=== PATIENT | male | born 1985 | race African-American/Black ===

== ENCOUNTER 2024-02-25 20:44 | Inpatient (IN) | payer MEDICARE, MEDICAID ==
[2024-02-25] MEDS ORDERED: Acetaminophen 325 MG TAB PO PRN (23:02)
[2024-02-25] MEDS ORDERED: Ondansetron PF 4 MG/2 ML Vial IVP PRN (23:02)
[2024-02-25] MEDS ORDERED: Lorazepam 2 MG/ML VIAL SLOW IVP PRN (23:29)
[2024-02-26] MEDS: Lactated Ringer's 1,000 ML IV SCH ×2 (01:33→09:43)
[2024-02-26 01:35] VITALS: BMI 25.7
[2024-02-26 06:06] LABS: #Basophils 0.04 10x3/uL (0.0-0.2); #Eosinphils Less than 0.03 10x3/uL (0.0-0.7); %Basophils 0.5 % (0.0-1.0); %Eosinophils 0.3 % (0.0-10.0); %Lymphocytes 21.2 % (21.0-51.0); %Monocytes 10.4 % (0.0-10.0); %Neutrophils 67.3 % (42.0-75.0); Hematocrit 34.9 % (42.0-52.0); Hemoglobin 11.3 g/dL (14.0-18.0); Mean Corpuscular HGB CONC 32.4 g/dL (32.0-36.0); Mean Corpuscular Hemoglobin 28.8 pg (27.0-31.0); Mean Corpuscular Volume 88.8 fL (78.0-98.0); Platelet Count 189 10x3/uL (130-400); RBC Distribution Width 14.7 % (11.5-14.5); Red Blood Cell (RBC) Count 3.93 mill/uL (4.70-6.10)
[2024-02-26 06:51] LABS: Amphetamine Not Detected (NotDetected); Barbiturates Screen Not Detected (NotDetected); Benzodiazepine Screen Detected (NotDetected); Cocaine Metabolite Screen Not Detected (NotDetected); Methadone Not Detected (NotDetected); Methamphetamine Not Detected (NotDetected); Opiate Screen Not Detected (NotDetected); Oxycodone Screen Not Detected (NotDetected); Phencyclidine (PCP) Not Detected (NotDetected); THC/Cannabinoid Screen Detected (NotDetected); Tricyclic Screen Not Detected (NotDetected)
[2024-02-26 06:58] LABS: Bilirubin Negative (Negative); Blood, Urine 2+ (Negative); Clarity Extra Turbid (Clear); Glucose, Urine (Dipstick) Normal (Negative); Ketone, Urine 60 mg/dL (Negative); Leukocyte 500 Leu/uL (Negative); Nitrite Negative (Negative); Protein, Urine (Dipstick) 50 mg/dL (Neg-Trace); RBC/HPF 21-50 HPF (0-3); Specific Gravity, Urine 1.017 (1.002-1.036); Squamous Epithelial 0-3 HPF (0-3); Urobilinogen Normal mg/dL (Less than 2); WBC/HPF Greater than 50 HPF (0-3)
[2024-02-26 06:59] LABS: Bacteria/HPF 1+ HPF (None Seen)
[2024-02-26 07:00] LABS: CK (CPK) 9041 U/L (30-200)
[2024-02-26 07:09] LABS: ALT (SGPT) 56 U/L (8-55); AST (SGOT) 136 U/L (5-34); Albumin 3.3 g/dL (3.5-5.0); Alkaline Phosphatase 68 U/L (40-110); Anion Gap 14 mmol/L (10-20); BUN (Urea Nitrogen) 9 mg/dL (8.9-20.6); Bilirubin, Total 0.5 mg/dL (0.2-1.2); Calc. Creatinine Clearance 121 mL/min (70-130); Calcium 8.4 mg/dL (7.8-10.44); Carbon Dioxide 22 mmol/L (22-29); Chloride 106 mmol/L (98-107); Estimated GFR 101; Globulin 2.9 g/dL (2.4-3.5); Glucose 85 mg/dL (70-105); Magnesium 2.2 mg/dL (1.6-2.6); Potassium 3.5 mmol/L (3.5-5.1); Protein, Total 6.2 g/dL (6.0-8.3); Sodium 138 mmol/L (136-145)
[2024-02-26] MEDS: Ziprasidone 20 MG VIAL IM SCH (08:05)
[2024-02-26] MEDS: Sterile Water 10 ML VIAL FS SCH (08:05)
[2024-02-26] MEDS: Cefdinir 300 MG CAP PO SCH (09:43)
[2024-02-26] MEDS: OLANZapine 5 MG TAB PO SCH (09:44)
[2024-02-26] MEDS: levETIRAcetam 500 MG (5 mL) VIAL SLOW IVP SCH (09:44)
[2024-02-26 16:04] VITALS: BP 146/99; TEMP 98.2
[2024-02-27] MEDS: FLU (Fluarix Triv) TS24-25(6MOS UP)/PF 45 MCG/0.5 ML Syringe IM ONE (07:50)
[2024-02-27] MEDS: OLANZapine 5 MG TAB PO SCH (09:58)
[2024-02-27] MEDS: levETIRAcetam 500 MG TAB PO SCH (09:58)
== END 2024-02-27 10:06 | disposition left against medical advice (07) | DRG 101 ==
LOC: 2SE 21:25 → INTOOBSV 21:25 → OBSVTOIN 02-26 14:12
PROVIDERS: ADMIT Internal Medicine; ATTEND Internal Medicine
DX: R56.9 Unspecified convulsions (principal); N39.0 Urinary tract infection, site not specified; N17.9 Acute kidney failure, unspecified; M62.82 Rhabdomyolysis; F23 Brief psychotic disorder; F31.9 Bipolar disorder, unspecified; E86.0 Dehydration; F12.90 Cannabis use, unspecified, uncomplicated; Z71.51 Drug abuse counseling and surveillance of drug abuser
CPT/HCPCS: 36415; 80053; 80306; 81001; 82550; 83735; 85025; 87077; 87086; 94760; 96374; G0378; J1953; J7120